=== PATIENT | female | born 1945 | race Caucasian/White ===

== ENCOUNTER 2016-03-02 08:05 | Inpatient (IN) ==
[2016-03-02] MEDS ORDERED: *HR* OxyCODONE Immed Rel 5 MG TABLET PO PRN (12:22)
--- NOTE | 2016-03-02 13:33 | Internal Med History&Physical ---
Date of Encounter: 03/02/16 Time of Encounter: 13:31 Internal Medicine - H&P: HPI Admitted From: Hospital to Hospital Transfer Plans for Post Hospital Care: Home History of present illness: Ms. Regalado is a 70 year old female Past Med Surg Social Fam HX - Past Medical History Medical history: GERD, hyperlipidemia, hypertension Psychiatric history: no psych history - Social History Smoking Status: Never smoker Smokeless Tobacco Status: No Alcohol use: none Drug use: none - Family History Mother Hx Family Cardiac Disorders: Yes Father Hx Family Cancer: Yes (Leukemia) Internal Medicine - H&P: Meds Ascorbic Acid [Vitamin C] 1,000 mg PO DAILY 02/28/16 [History] Aspirin 81 mg PO DAILY 02/28/16 [History] Atorvastatin [Lipitor] 40 mg PO HS 02/28/16 [History] Calcium Carbonate/Vitamin D3 [Calcium 500 + Vit D Caplet] 1 each PO QAM [History] Chlordiazepoxide [Librium] 10 mg PO TID PRN 02/28/16 [History] Cholecalciferol (Vitamin D3) [Vitamin D3] 2,000 unit PO DAILY 02/28/16 [History] Cyanocobalamin (Vitamin B-12) [Vitamin B-12] 1,000 mcg SL DAILY 02/28/16 [ History] Cyclobenzaprine [Flexeril] 10 mg PO TID PRN 02/28/16 [History] Cyclosporine [Restasis] 1 each OP BID 02/28/16 [History] Fish Oil/Dha/Epa [Fish Oil 1,200 mg Fish Oil] 1 each PO DAILY 02/28/16 [History] Flecainide 100 mg PO Q12HR 02/28/16 [History] Garlic 1,000 mg PO DAILY 02/28/16 [History] Glucosamn/Condroitn/C/Mn/[place] [[facility]vs Glucosamine Chondroitin Tb] 2 each PO DAILY 02/28/16 [History] Lisinopril [Zestril] 20 mg PO HS 02/28/16 [History] Metoprolol [Lopressor] 25 mg PO QAM 02/28/16 [History] Metoprolol [Lopressor] 50 mg PO HS 02/28/16 [History] Multivitamin [Multivitamins] 1 each PO DAILY 02/28/16 [History] Omeprazole [PriLOSEC] 20 mg PO BIDAC 02/28/16 [History] OxyCODONE Immed Rel [Roxicodone 5 MG] 5 - 10 mg PO Q6HR PRN #40 tablet 02/28/16 [Rx] Rivaroxaban [Xarelto] 20 mg PO HS 02/28/16 [History] Triamterene/HCTZ 75/50mg [Maxzide] 0.5 tab PO QAM 02/28/16 [History] Wheat Dextrin/Calcium Carb [Cvs Easy Fiber Chewable Tablet] 2 each PO DAILY [History] Allergies Sulfa (Sulfonamide Antibiotics) Allergy (Verified 02/28/16 11:52) See Comments unknown per patient ketorolac [From Toradol] Adverse Reaction (Verified 02/28/16 11:52) See Comments kidney failure/CHF NSAIDS (Non-Steroidal Anti-Inflamma Adverse Reaction (Verified 02/28/16 11:52) See Comments kidney failure All Systems PM: A 10-system review of systems was performed and is negative for pertinent findings except as documented above in the HPI. - Constitutional Vitals: Temp Pulse Resp BP Pulse Ox 98.7 F 82 18 124/70 98 03/02/16 12:02 03/02/16 12:02 03/02/16 12:02 03/02/16 12:02 03/02/16 12:02 - Head Head exam: Present: atraumatic, normal inspection, normocephalic - Neck Neck exam general surgery: Present: supple, trachea midline. Absent: lymphadenopathy - Respiratory Respiratory exam: Present: CTAB. Absent: accessory muscle use, rales, rhonchi, wheezes - Cardiovascular Cardiovascular exam: Present: RRR, +S1, +S2. Absent: diastolic murmur, gallop, rubs, systolic murmur - GI/Abdominal GI/Abdominal exam: Present: normal bowel sounds, soft, no peritoneal signs. Absent: distended, tenderness Internal Med - H&P Results - Labs Labs: Pending
[2016-03-02] MEDS: *HR* OxyCODONE Immed Rel 5 MG TABLET PO PRN ×2 (14:15→20:45)
[2016-03-02] MEDS: (Cyclosporine [Restasis] 1 EACH) OP SCH (20:42)
[2016-03-02] MEDS: Lisinopril 20 MG TABLET PO SCH (20:42)
[2016-03-02] MEDS: *HR* Rivaroxaban 10 MG TABLET PO SCH (20:42)
[2016-03-03] MEDS: *HR* OxyCODONE Immed Rel 5 MG TABLET PO PRN ×3 (05:40→17:16)
[2016-03-03 05:47] LABS: Basophils % 0.4 %; Eosinophils # 0.1 K/mcL (0.0-0.6); Eosinophils % 0.7 %; Hematocrit 27.7 % (35.3-44.9); Hemoglobin 8.8 g/dL (11.5-15.4); Immature Granulocytes % 0.3 % (0-4); Lymphocytes # 1.7 K/mcL (0.6-4.6); Lymphocytes % 15.9 %; Mean Corpuscular HGB Conc 31.8 g/dL (31.6-35.5); Mean Corpuscular Hemoglobin 21.7 pg (28.0-33.3); Mean Corpuscular Volume 68.4 fL (83.0-100.0); Mean Platelet Volume 11.1 fL (9.4-12.4); Monocytes # 0.7 K/mcL (0.0-1.3); Monocytes % 6.8 %; Neutrophils # 7.9 K/mcL (1.6-8.9); Nucleated Red Blood Cells 0.3 /100 WBC (0); Platelet Count 240 K/mcL (140-400); Red Blood Count 4.05 M/mcL (3.82-4.97); Red Cell Distribution Width 15.8 % (11.5-14.5); Segmented Neutrophils % 75.9 %
[2016-03-03 05:56] LABS: BUN/Creatinine Ratio 23 (6-26); Blood Urea Nitrogen 19 mg/dL (7-20); Calcium 9.8 mg/dL (8.6-10.8); Carbon Dioxide 25 mEq/L (19-29); Chloride 102 mEq/L (98-109); Glucose 176 mg/dL (70-99); Osmolality,Calculated 295 (280-300); Potassium 4.1 mEq/L (3.5-4.5); Sodium 139 mEq/L (136-145); eGFR For African Americans > 60 (> 60); eGFR For Non-African Americans > 60 (> 60)
[2016-03-03] MEDS: Multivit/Ca/Min/Fe/FA 1 TAB TABLET PO SCH (08:43)
[2016-03-03] MEDS: Cyanocobalamin (B-12) 1,000 MCG TABLET PO SCH (08:43)
[2016-03-03] MEDS: VITAMIN D3 PO SCH (08:44)
[2016-03-03] MEDS: CALCIUM CARBONATE PO SCH (08:44)
[2016-03-03] MEDS: Aspirin 81 MG TAB.CHEW PO SCH (08:44)
[2016-03-03] MEDS: (Fish Oil/Dha/Epa [Fish Oil 1,200 Mg Fish Oil] 1 EACH PO SCH (08:44)
[2016-03-03] MEDS: Ascorbic Acid 500 MG TABLET PO SCH (08:44)
[2016-03-03] MEDS: Cholecalciferol (D-3) 1,000 UNIT TABLET PO SCH (08:44)
[2016-03-03] MEDS: (Cyclosporine [Restasis] 1 EACH) OP SCH ×2 (08:44→20:27)
[2016-03-03] MEDS: (Garlic [Garlic] 1,000 MG) PO SCH (08:45)
[2016-03-03] MEDS: WHEAT DEXTRIN PO SCH (08:45)
[2016-03-03] MEDS: CALCIUM CARB PO SCH (08:45)
[2016-03-03] MEDS: [UNRECOGNIZED DRUG - OTHER] PO SCH (08:45)
--- NOTE | 2016-03-03 11:22 | Internal Med Progress Note ---
Date of Encounter: 03/03/16 Time of Encounter: 11:21 - Time Spent With Patient less than 15 minutes - Subjective Interval history: Quotation flowers I am worn-out. Patient reports being very tired from doing her therapy this morning and she is currently resting. Pain appears to be tolerable and she is using the cooling machine at this time - Constitutional Vitals: Temp Pulse Resp BP Pulse Ox 98.7 F 86 16 121/75 94 L 03/03/16 07:07 03/03/16 07:07 03/03/16 07:07 03/03/16 07:07 03/03/16 07:07 - Head Head exam: Present: atraumatic, normal inspection, normocephalic - Neck Neck exam general surgery: Present: supple, trachea midline. Absent: lymphadenopathy - Respiratory Respiratory exam: Present: CTAB. Absent: accessory muscle use, rales, rhonchi, wheezes - Cardiovascular Cardiovascular exam: Present: RRR, +S1, +S2. Absent: diastolic murmur, gallop, rubs, systolic murmur - GI/Abdominal GI/Abdominal exam: Present: normal bowel sounds, soft, no peritoneal signs. Absent: distended, tenderness Internal Medicine: Result - Labs CBC & Chem 7: 03/03/16 05:35 03/03/16 05:35 Labs: Short CBC 03/03/16 Range/Units 05:35 WBC 10.4 (4.3-11.1) K/mcL Hgb 8.8 L (11.5-15.4) g/dL Hct 27.7 L (35.3-44.9) % Plt Count 240 (140-400) K/mcL Neutrophils # 7.9 (1.6-8.9) K/mcL BMP 03/03/16 05:35 Sodium 139 Potassium 4.1 Chloride 102 Carbon Dioxide 25 BUN 19 Creatinine 0.83 Glucose 176 H Calcium 9.8 Labs stable Consult Discharge Plan - Plan Referrals: Cookie Xavier MD [Primary Care Provider] -
[2016-03-03] MEDS: Lisinopril 20 MG TABLET PO SCH (20:28)
[2016-03-03] MEDS: *HR* Rivaroxaban 10 MG TABLET PO SCH (20:28)
[2016-03-04] MEDS: *HR* OxyCODONE Immed Rel 5 MG TABLET PO PRN ×4 (01:27→18:04)
--- NOTE | 2016-03-04 04:33 | Internal Med Progress Note ---
Date of Encounter: 03/04/16 Time of Encounter: 09:09 - Time Spent With Patient Status post total knee replacement PTOT working on improving gait and transfer and balance. Appears to have persistent pain. Very cautious in guarded in her movements. Right knee appears swollen with moderate ecchymosis. Mild drainage noted. . less than 15 minutes - Subjective Interval history: Feels okay today. Moderate postop pain. Planes of constipation. Given Colace. Requesting K pad. Initial dose of breath. No chest pain. - Constitutional Vitals: Temp Pulse Resp BP Pulse Ox 98.4 F 90 18 107/60 92 L 03/03/16 20:23 03/03/16 20:23 03/03/16 20:23 03/03/16 20:23 03/03/16 20:23 General appearance: Present: A&O X 3, pleasant, no acute distress, obese - Respiratory Respiratory exam: Present: CTAB. Absent: accessory muscle use, rales, rhonchi, wheezes - Cardiovascular Cardiovascular exam: Present: RRR, +S1, +S2. Absent: diastolic murmur, gallop, rubs, systolic murmur - GI/Abdominal GI/Abdominal exam: Present: normal bowel sounds, soft, no peritoneal signs. Absent: distended, tenderness - Expanded Lower Extremities Exam Knee exam: Present: erythema, swelling, tenderness Internal Medicine: Result - Labs CBC & Chem 7: 03/03/16 05:35 03/03/16 05:35 Labs: Short CBC 03/03/16 Range/Units 05:35 WBC 10.4 (4.3-11.1) K/mcL Hgb 8.8 L (11.5-15.4) g/dL Hct 27.7 L (35.3-44.9) % Plt Count 240 (140-400) K/mcL Neutrophils # 7.9 (1.6-8.9) K/mcL BMP 03/03/16 05:35 Sodium 139 Potassium 4.1 Chloride 102 Carbon Dioxide 25 BUN 19 Creatinine 0.83 Glucose 176 H Calcium 9.8 Consult Discharge Plan - Plan Referrals: Cookie Xavier MD [Primary Care Provider] -
[2016-03-04] MEDS: Cyanocobalamin (B-12) 1,000 MCG TABLET PO SCH (08:19)
[2016-03-04] MEDS: Multivit/Ca/Min/Fe/FA 1 TAB TABLET PO SCH (08:19)
[2016-03-04] MEDS: Ascorbic Acid 500 MG TABLET PO SCH (08:19)
[2016-03-04] MEDS: Aspirin 81 MG TAB.CHEW PO SCH (08:19)
[2016-03-04] MEDS: Cholecalciferol (D-3) 1,000 UNIT TABLET PO SCH (08:19)
[2016-03-04] MEDS: (Garlic [Garlic] 1,000 MG) PO SCH (08:20)
[2016-03-04] MEDS: CALCIUM CARB PO SCH (08:20)
[2016-03-04] MEDS: [UNRECOGNIZED DRUG - OTHER] PO SCH (08:20)
[2016-03-04] MEDS: CALCIUM CARBONATE PO SCH (08:20)
[2016-03-04] MEDS: (Fish Oil/Dha/Epa [Fish Oil 1,200 Mg Fish Oil] 1 EACH PO SCH (08:20)
[2016-03-04] MEDS: WHEAT DEXTRIN PO SCH (08:20)
[2016-03-04] MEDS: (Cyclosporine [Restasis] 1 EACH) OP SCH ×2 (08:20→21:30)
[2016-03-04] MEDS: VITAMIN D3 PO SCH (08:20)
[2016-03-04] MEDS: *HR* Rivaroxaban 10 MG TABLET PO SCH (21:30)
[2016-03-04] MEDS: MOM Conc 10 ML UD.LIQ PO SCH (21:30)
[2016-03-04] MEDS: Lisinopril 20 MG TABLET PO SCH (21:30)
[2016-03-05] MEDS: *HR* OxyCODONE Immed Rel 5 MG TABLET PO PRN ×4 (00:29→21:56)
[2016-03-05] MEDS: Ascorbic Acid 500 MG TABLET PO SCH (08:05)
[2016-03-05] MEDS: Multivit/Ca/Min/Fe/FA 1 TAB TABLET PO SCH (08:05)
[2016-03-05] MEDS: VITAMIN D3 PO SCH (08:05)
[2016-03-05] MEDS: Aspirin 81 MG TAB.CHEW PO SCH (08:05)
[2016-03-05] MEDS: CALCIUM CARBONATE PO SCH (08:05)
[2016-03-05] MEDS: Cyanocobalamin (B-12) 1,000 MCG TABLET PO SCH (08:05)
[2016-03-05] MEDS: Cholecalciferol (D-3) 1,000 UNIT TABLET PO SCH (08:05)
[2016-03-05] MEDS: (Garlic [Garlic] 1,000 MG) PO SCH (08:06)
[2016-03-05] MEDS: WHEAT DEXTRIN PO SCH (08:06)
[2016-03-05] MEDS: [UNRECOGNIZED DRUG - OTHER] PO SCH (08:06)
[2016-03-05] MEDS: (Cyclosporine [Restasis] 1 EACH) OP SCH ×2 (08:06→21:55)
[2016-03-05] MEDS: CALCIUM CARB PO SCH (08:06)
[2016-03-05] MEDS: (Fish Oil/Dha/Epa [Fish Oil 1,200 Mg Fish Oil] 1 EACH PO SCH (08:06)
--- NOTE | 2016-03-05 12:15 | Internal Med Progress Note ---
Date of Encounter: 03/05/16 Time of Encounter: 12:14 - Time Spent With Patient less than 15 minutes - Subjective Interval history: Patient looks much brighter today. More rested eating lunch with her family and no current complaints. - Constitutional Vitals: Temp Pulse Resp BP Pulse Ox 98.5 F 70 18 106/70 94 L 03/05/16 06:00 03/05/16 06:00 03/05/16 06:00 03/05/16 06:00 03/05/16 06:00 General appearance: Present: A&O X 3, pleasant, no acute distress, obese - Head Head exam: Present: atraumatic, normal inspection, normocephalic - Neck Neck exam general surgery: Present: supple, trachea midline. Absent: lymphadenopathy - Respiratory Respiratory exam: Present: CTAB. Absent: accessory muscle use, rales, rhonchi, wheezes - Cardiovascular Cardiovascular exam: Present: RRR, +S1, +S2. Absent: diastolic murmur, gallop, rubs, systolic murmur - GI/Abdominal GI/Abdominal exam: Present: normal bowel sounds, soft, no peritoneal signs. Absent: distended, tenderness Internal Medicine: Result - Labs CBC & Chem 7: 03/03/16 05:35 03/03/16 05:35 Labs: Abdomen appears to be stable Consult Discharge Plan - Plan Referrals: Cookie Xavier MD [Primary Care Provider] -
[2016-03-05] MEDS: *HR* Rivaroxaban 10 MG TABLET PO SCH (21:55)
[2016-03-05] MEDS: MOM Conc 10 ML UD.LIQ PO SCH (21:55)
[2016-03-05] MEDS: Lisinopril 20 MG TABLET PO SCH (21:56)
[2016-03-06] MEDS: *HR* OxyCODONE Immed Rel 5 MG TABLET PO PRN ×5 (03:09→21:47)
[2016-03-06 06:16] LABS: Basophils % 0.3 %; Eosinophils # 0.2 K/mcL (0.0-0.6); Eosinophils % 3.2 %; Hematocrit 26.8 % (35.3-44.9); Hemoglobin 8.3 g/dL (11.5-15.4); Immature Granulocytes % 0.6 % (0-4); Lymphocytes # 1.1 K/mcL (0.6-4.6); Lymphocytes % 16.2 %; Mean Corpuscular Hemoglobin 21.3 pg (28.0-33.3); Mean Corpuscular Volume 68.9 fL (83.0-100.0); Mean Platelet Volume 10.4 fL (9.4-12.4); Monocytes # 0.5 K/mcL (0.0-1.3); Monocytes % 8.3 %; Neutrophils # 4.7 K/mcL (1.6-8.9); Platelet Count 249 K/mcL (140-400); Red Blood Count 3.89 M/mcL (3.82-4.97); Red Cell Distribution Width 16.2 % (11.5-14.5); Segmented Neutrophils % 71.4 %
[2016-03-06 06:21] LABS: BUN/Creatinine Ratio 23 (6-26); Blood Urea Nitrogen 19 mg/dL (7-20); Calcium 9.5 mg/dL (8.6-10.8); Carbon Dioxide 25 mEq/L (19-29); Chloride 103 mEq/L (98-109); Glucose 155 mg/dL (70-99); Osmolality,Calculated 295 (280-300); Potassium 4.2 mEq/L (3.5-4.5); Sodium 140 mEq/L (136-145); eGFR For African Americans > 60 (> 60); eGFR For Non-African Americans > 60 (> 60)
[2016-03-06] MEDS: Cholecalciferol (D-3) 1,000 UNIT TABLET PO SCH (09:34)
[2016-03-06] MEDS: Ascorbic Acid 500 MG TABLET PO SCH (09:34)
[2016-03-06] MEDS: Cyanocobalamin (B-12) 1,000 MCG TABLET PO SCH (09:34)
[2016-03-06] MEDS: Multivit/Ca/Min/Fe/FA 1 TAB TABLET PO SCH (09:34)
[2016-03-06] MEDS: Aspirin 81 MG TAB.CHEW PO SCH (09:35)
[2016-03-06] MEDS: (Garlic [Garlic] 1,000 MG) PO SCH (09:36)
[2016-03-06] MEDS: (Fish Oil/Dha/Epa [Fish Oil 1,200 Mg Fish Oil] 1 EACH PO SCH (09:36)
[2016-03-06] MEDS: WHEAT DEXTRIN PO SCH (09:36)
[2016-03-06] MEDS: [UNRECOGNIZED DRUG - OTHER] PO SCH (09:36)
[2016-03-06] MEDS: CALCIUM CARB PO SCH (09:36)
[2016-03-06] MEDS: CALCIUM CARBONATE PO SCH (09:45)
[2016-03-06] MEDS: VITAMIN D3 PO SCH (09:45)
[2016-03-06] MEDS: (Cyclosporine [Restasis] 1 EACH) OP SCH ×2 (09:45→19:47)
[2016-03-06 09:56] LABS: Hypochromasia Present (Not Present); Microcytosis Present (Not Present); Platelet Estimate Normal (Normal)
[2016-03-06 09:57] LABS: Macrocytosis Present (Not Present)
--- NOTE | 2016-03-06 11:29 | Internal Med Progress Note ---
Date of Encounter: 03/06/16 Time of Encounter: 11:26 - Time Spent With Patient Diagnosis. Status post right total knee replacement. Doing well with PT and OT. Showing improvement in endurance gait transfer and balance Diabetes. Accu-Chek is 155. less than 15 minutes - Subjective Interval history: Feels okay today. Moderate postop pain. Complains of chronic back pain. No shortness of breath. No chest pain. No nausea vomiting abdominal pain. - Constitutional Vitals: Temp Pulse Resp BP Pulse Ox 98.4 F 62 16 128/74 94 L 03/06/16 07:45 03/06/16 07:45 03/06/16 07:45 03/06/16 07:45 03/06/16 07:45 General appearance: Present: A&O X 3, pleasant, no acute distress, obese - Respiratory Respiratory exam: Present: CTAB. Absent: accessory muscle use, rales, rhonchi, wheezes - Cardiovascular Cardiovascular exam: Present: RRR, +S1, +S2. Absent: diastolic murmur, gallop, rubs, systolic murmur - GI/Abdominal GI/Abdominal exam: Present: normal bowel sounds, soft, no peritoneal signs. Absent: distended, tenderness - Expanded Lower Extremities Exam Knee exam: Present: full ROM, tenderness Gait: Present: observed and limited by pain - Incison Incision: Present: clean and dry - Back Exam Back exam: Present: tenderness Internal Medicine: Result - Labs CBC & Chem 7: 03/06/16 05:40 03/06/16 05:40 Labs: Short CBC 03/06/16 Range/Units 05:40 WBC 6.5 (4.3-11.1) K/mcL Hgb 8.3 L (11.5-15.4) g/dL Hct 26.8 L (35.3-44.9) % Plt Count 249 (140-400) K/mcL Neutrophils # 4.7 (1.6-8.9) K/mcL BMP 03/06/16 05:40 Sodium 140 Potassium 4.2 Chloride 103 Carbon Dioxide 25 BUN 19 Creatinine 0.84 Glucose 155 H Calcium 9.5 Consult Discharge Plan - Plan Referrals: Cookie Xavier MD [Primary Care Provider] -
[2016-03-06] MEDS: MOM Conc 10 ML UD.LIQ PO SCH (19:47)
[2016-03-06] MEDS: Lisinopril 20 MG TABLET PO SCH (19:48)
[2016-03-06] MEDS: *HR* Rivaroxaban 10 MG TABLET PO SCH (19:48)
--- NOTE | 2016-03-07 00:04 | Internal Med Progress Note ---
Date of Encounter: 03/07/16 Time of Encounter: 07:52 - Time Spent With Patient Diagnosis. Right total knee replacement status post. Chronic back pain. Diabetes. Plan. PT OT working on improving gait, balance and transfer and endurance. less than 15 minutes - Subjective Interval history: Feels okay today. Moderate postop pain. Complains of chronic back pain. No shortness of breath. No chest pain. No nausea vomiting abdominal pain. - Constitutional Vitals: Temp Pulse Resp BP Pulse Ox 99.5 F 87 14 121/74 93 L 03/06/16 19:00 03/06/16 19:00 03/06/16 19:00 03/06/16 19:00 03/06/16 19:00 General appearance: Present: A&O X 3, pleasant, no acute distress, obese - Respiratory Respiratory exam: Present: CTAB. Absent: accessory muscle use, rales, rhonchi, wheezes - Cardiovascular Cardiovascular exam: Present: RRR, +S1, +S2. Absent: diastolic murmur, gallop, rubs, systolic murmur - GI/Abdominal GI/Abdominal exam: Present: normal bowel sounds, soft, no peritoneal signs. Absent: distended, tenderness - Expanded Lower Extremities Exam Knee exam: Present: swelling, tenderness Gait: Present: antalgic - Incison Incision: Present: clean and dry Internal Medicine: Result - Labs CBC & Chem 7: 03/06/16 05:40 03/06/16 05:40 Labs: Short CBC 03/06/16 Range/Units 05:40 WBC 6.5 (4.3-11.1) K/mcL Hgb 8.3 L (11.5-15.4) g/dL Hct 26.8 L (35.3-44.9) % Plt Count 249 (140-400) K/mcL Neutrophils # 4.7 (1.6-8.9) K/mcL BMP 03/06/16 05:40 Sodium 140 Potassium 4.2 Chloride 103 Carbon Dioxide 25 BUN 19 Creatinine 0.84 Glucose 155 H Calcium 9.5 Consult Discharge Plan - Plan Referrals: Cookie Xavier MD [Primary Care Provider] -
[2016-03-07] MEDS: *HR* OxyCODONE Immed Rel 5 MG TABLET PO PRN ×3 (05:39→20:24)
[2016-03-07] MEDS: Cyanocobalamin (B-12) 1,000 MCG TABLET PO SCH (08:04)
[2016-03-07] MEDS: Ascorbic Acid 500 MG TABLET PO SCH (08:04)
[2016-03-07] MEDS: Cholecalciferol (D-3) 1,000 UNIT TABLET PO SCH (08:04)
[2016-03-07] MEDS: (Cyclosporine [Restasis] 1 EACH) OP SCH ×2 (08:05→20:26)
[2016-03-07] MEDS: (Fish Oil/Dha/Epa [Fish Oil 1,200 Mg Fish Oil] 1 EACH PO SCH (08:05)
[2016-03-07] MEDS: VITAMIN D3 PO SCH (08:05)
[2016-03-07] MEDS: CALCIUM CARBONATE PO SCH (08:05)
[2016-03-07] MEDS: (Garlic [Garlic] 1,000 MG) PO SCH (08:05)
[2016-03-07] MEDS: Aspirin 81 MG TAB.CHEW PO SCH (08:05)
[2016-03-07] MEDS: Multivit/Ca/Min/Fe/FA 1 TAB TABLET PO SCH (08:05)
[2016-03-07] MEDS: WHEAT DEXTRIN PO SCH (08:06)
[2016-03-07] MEDS: [UNRECOGNIZED DRUG - OTHER] PO SCH (08:06)
[2016-03-07] MEDS: CALCIUM CARB PO SCH (08:06)
[2016-03-07] MEDS: *HR* Rivaroxaban 10 MG TABLET PO SCH (20:24)
[2016-03-07] MEDS: MOM Conc 10 ML UD.LIQ PO SCH (20:24)
[2016-03-07] MEDS: Lisinopril 20 MG TABLET PO SCH (20:24)
[2016-03-08] MEDS: *HR* OxyCODONE Immed Rel 5 MG TABLET PO PRN ×3 (01:02→09:36)
[2016-03-08 07:12] VITALS: BP 121/64
[2016-03-08] MEDS: Aspirin 81 MG TAB.CHEW PO SCH (09:36)
[2016-03-08] MEDS: Cyanocobalamin (B-12) 1,000 MCG TABLET PO SCH (09:36)
[2016-03-08] MEDS: Cholecalciferol (D-3) 1,000 UNIT TABLET PO SCH (09:36)
[2016-03-08] MEDS: Multivit/Ca/Min/Fe/FA 1 TAB TABLET PO SCH (09:36)
[2016-03-08] MEDS: Ascorbic Acid 500 MG TABLET PO SCH (09:36)
[2016-03-08] MEDS: WHEAT DEXTRIN PO SCH (09:37)
[2016-03-08] MEDS: (Fish Oil/Dha/Epa [Fish Oil 1,200 Mg Fish Oil] 1 EACH PO SCH (09:37)
[2016-03-08] MEDS: (Garlic [Garlic] 1,000 MG) PO SCH (09:37)
[2016-03-08] MEDS: [UNRECOGNIZED DRUG - OTHER] PO SCH (09:37)
[2016-03-08] MEDS: CALCIUM CARB PO SCH (09:37)
[2016-03-08] MEDS: CALCIUM CARBONATE PO SCH (09:37)
[2016-03-08] MEDS: (Cyclosporine [Restasis] 1 EACH) OP SCH (09:37)
[2016-03-08] MEDS: VITAMIN D3 PO SCH (09:37)
--- NOTE | 2016-03-08 12:48 | Discharge Summary ---
Date of Encounter: 03/09/16 Time of Encounter: 12:46 - Discharge Diagnosis (1) Acute blood loss anemia Priority: Secondary Status: Acute (2) Arthritis of knee, left Priority: Primary Status: Acute (3) Morbid obesity with BMI of 40.0-44.9, adult Priority: Secondary Status: Chronic - Discharge Medications Home Medications: Ascorbic Acid [Vitamin C] 1,000 mg PO DAILY 02/28/16 [History] Aspirin 81 mg PO DAILY 02/28/16 [History] Atorvastatin [Lipitor] 40 mg PO HS 02/28/16 [History] Calcium Carbonate/Vitamin D3 [Calcium 500 + Vit D Caplet] 1 each PO QAM [History] Chlordiazepoxide [Librium] 10 mg PO TID PRN 02/28/16 [History] Cholecalciferol (Vitamin D3) [Vitamin D3] 2,000 unit PO DAILY 02/28/16 [History] Cyanocobalamin (Vitamin B-12) [Vitamin B-12] 1,000 mcg SL DAILY 02/28/16 [ History] Cyclobenzaprine [Flexeril] 10 mg PO TID PRN 02/28/16 [History] Cyclosporine [Restasis] 1 each OP BID 02/28/16 [History] Fish Oil/Dha/Epa [Fish Oil 1,200 mg Fish Oil] 1 each PO DAILY 02/28/16 [History] Flecainide 100 mg PO Q12HR 02/28/16 [History] Garlic 1,000 mg PO DAILY 02/28/16 [History] Glucosamn/Condroitn/C/Mn/[place] [[facility]vs Glucosamine Chondroitin Tb] 2 each PO DAILY 02/28/16 [History] Lisinopril [Zestril] 20 mg PO HS 02/28/16 [History] Metoprolol [Lopressor] 25 mg PO QAM 02/28/16 [History] Metoprolol [Lopressor] 50 mg PO HS 02/28/16 [History] Multivitamin [Multivitamins] 1 each PO DAILY 02/28/16 [History] Omeprazole [PriLOSEC] 20 mg PO BIDAC 02/28/16 [History] OxyCODONE Immed Rel [Roxicodone 5 MG] 5 - 10 mg PO Q6HR PRN #40 tablet 02/28/16 [Rx] Rivaroxaban [Xarelto] 20 mg PO HS 02/28/16 [History] Triamterene/HCTZ 75/50mg [Maxzide] 0.5 tab PO QAM 02/28/16 [History] Wheat Dextrin/Calcium Carb [[facility]vs Easy Fiber Chewable Tablet] 2 each PO DAILY [History] Allergies/Adverse Reactions: Allergies Sulfa (Sulfonamide Antibiotics) Allergy (Verified 02/28/16 11:52) See Comments unknown per patient ketorolac [From Toradol] Adverse Reaction (Verified 02/28/16 11:52) See Comments kidney failure/CHF NSAIDS (Non-Steroidal Anti-Inflamma Adverse Reaction (Verified 02/28/16 11:52) See Comments kidney failure Date of admission: 03/02/16 11:58 Primary care physician: Cookie Chavira Consults: 03/02/16 12:03 Consult to Occupational Therapy [CONS] Routine Comment: Evaluate, develop and implement POC Consult to Physical Therapy [CONS] Routine Comment: Evaluate, develop and implement POC Consult to Recreational Therapy [CONS] Routine Comment: Evaluate, develop and implement POC Consult to Keeper Helper [CONS] Routine Reason for SW Consult: d/c planning Discharging clinician: Ike Hernández Anticipated date of discharge: 03/08/16 - Patient Status Disposition: Home, Self-Care Functional capacity at discharge: uses cane/walker Overall status at discharge: patient is progressing back to baseline - Discharge Instructions Instructions: Wound Infection (DC), Total Knee Replacement (DC) Follow Up With: Jose R Diaz MD [Partnered Physician] - 03/09/16 9:00 am (Appoint Mar 09, [address] Joe De Santiago Mar 0720am) Cookie Xavier MD [Primary Care Provider] - - Diet and Activity Activity: ambulate only with your walker, as per physical therapy Diet: advance to your usual diet Interval History: Patient was sent to [facility] rehabilitation unit status post right total knee replacement for osteoarthritis. Hospital course: Ms. Regalado is a 70 year old female Issues participated in therapy PT OT TR. It has progressed very well. Currently using walker for ambulation - Time Spent with Patient Total time spent providing and/or coordinating discharge services: Less than 30 minutes - Constitutional Vitals: Temp Pulse Resp BP Pulse Ox 98.7 F 78 16 121/64 93 L 03/08/16 07:00 03/08/16 07:00 03/08/16 07:00 03/08/16 07:00 03/08/16 07:00 General appearance: Present: A&O X 3, pleasant, no acute distress, obese - Head Head exam: Present: atraumatic, normal inspection, normocephalic - Respiratory Respiratory exam: Present: CTAB. Absent: accessory muscle use, rales, rhonchi, wheezes - Cardiovascular Cardiovascular exam: Present: RRR, +S1, +S2. Absent: diastolic murmur, gallop, rubs, systolic murmur - GI/Abdominal GI/Abdominal exam: Present: normal bowel sounds, soft, no peritoneal signs. Absent: distended, tenderness
== END 2016-03-08 13:15 | disposition home or self-care (01) | DRG 560 ==
LOC: INPGRE 11:58
PROVIDERS: ADMIT Internal Medicine; ATTEND Internal Medicine